=== PATIENT | male | born 1965 | race African-American/Black ===

== ENCOUNTER 2016-10-01 17:25 | Inpatient (IN) | payer SELFPAY ==
[2016-10-01] MEDS ORDERED: Acetaminophen 500 MG Tab PO ONE (17:50)
[2016-10-01] MEDS ORDERED: Sodium Chloride 0.9% 1,000 ML IV ONE ×2 (17:55→20:36)
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
[2016-10-01 19:14] LABS: CHLORIDE,CL 106 mmol/L (98-110); SODIUM,NA 138 mmol/L (136-146)
[2016-10-01] MEDS ORDERED: Ondansetron 4 MG/2 ML SDV IVPUSH PRN (22:55)
[2016-10-01] MEDS ORDERED: Sodium Chloride 0.9% 10 ML Syringe FLUSH PRN (22:55)
[2016-10-01] MEDS ORDERED: Sodium Chloride 0.9% 2.5 ML Syringe FLUSH PRN (22:55)
--- NOTE | 2016-10-01 23:06 | PCM.HP ---
H&P History of Present Illness - General Admit Problem/Dx: Admission Diagnosis/Problem Admission Diagnosis/Problem Fever - History of Present Illness Initial Comments - Free Text/Narative: 51 yo male with pmh of hypertension who presents with three day history of fevers and myalgias. He reports that he feels like he has malaria. He works for a [employer] but was visiting his in [place] from August 26 to September 26. He drove back here from [place] and then developed fevers. His symptoms he reports a similar to when he had malaria two years ago. He did not take and malaria prophylactic medications. His sister in law is a doctor in [place] who prescribed him Quinine which he started taking last night. Today he felt weaker so decided to come to the ED. He denies any cough, blood in stool, rash, or headache. Back Pain Pain Score (Numeric/FACES): 7 - Related Data Allergies/Adverse Reactions: Allergies Allergy/AdvReac Type Severity Reaction Status Date / Time No Known Allergies Allergy Verified 10/01/16 17:57 Home Medications: Home Meds quiNINE Sulfate [Qualaquin] 324 mg PO TID 10/01/16 [History] Past Medical History Cardiovascular History: Reports: Hypertension Social & Family History - Family History Family Medical History: Noncontributory - Tobacco Use Smoking Status *Q: Never Smoker - Recreational Drug Use Recreational Drug Use: Yes Drug Use in Last 12 Months: No Recreational Drug Type: Reports: Marijuana/Hashish H&P Review of Systems - Review of Systems: Review Of Systems: ROS reveals no pertinent complaints other than HPI. Exam - Exam Exam: See Below - Vital Signs Vital Signs: Last Vital Signs Temp 36.9 C 10/01/16 21:59 Pulse 95 10/01/16 21:59 Resp 18 10/01/16 21:59 BP 124/58 L 10/01/16 21:59 Pulse Ox 93 L 10/01/16 21:59 Weight: 102.058 kg - Exam General: Alert, Oriented, 4 Neck: Supple, Trachea Midline, Full Range of Motion. No: Lymphadenopathy Lungs: Clear to Auscultation, Normal Respiratory Effort Cardiovascular: Regular Rate, Regular Rhythm GI/Abdominal Exam: Normal Bowel Sounds, Soft, Non-Tender, No Organomegaly, No Distention, No Abnormal Bruit, No Mass, Pelvis Stable Back Exam: Normal Inspection, Full Range of Motion, NT - Patient Data Result Diagrams: 10/02/16 06:18 10/02/16 06:18 *Q Meaningful Use (ADM) - VTE *Q VTE Criteria *Q: - Stroke *Q Stroke Criteria *Q: - AMI *Q AMI Criteria *Q: Problem List Initiated/Reviewed/Updated: Yes Orders Last 24hrs: Active Orders 24 hr Category Date Time Status Antiembolic Devices [RC] PER UNIT ROUTINE Care 10/01/16 22:58 Ordered Intake and Output [RC] QSHIFT Care 10/01/16 22:57 Ordered Oxygen Therapy [RC] PRN Care 10/01/16 22:57 Ordered Up ad Charmaine [RC] ASDIRECTED Care 10/01/16 22:55 Ordered VTE/DVT Education [RC] PER UNIT ROUTINE Care 10/01/16 22:57 Ordered Vital Signs [RC] Q4H Care 10/01/16 22:57 Ordered Regular Diet [DIET] Diet 10/01/16 Breakfast Ordered CBC WITH AUTO DIFF [HEME] AM Lab 10/02/16 05:11 Ordered COMPREHENSIVE METABOLIC PN,CMP [CHEM] AM Lab 10/02/16 05:11 Ordered CULTURE URINE [RM] Stat Lab 10/01/16 22:55 Uncollected Ondansetron [Zofran] Med 10/01/16 22:55 Ordered 4 mg IVPUSH Q4H PRN Sodium Chloride 0.9% @ 125 MLS/HR (1000ml) Med 10/01/16 23:00 Ordered Sodium Chloride 0.9% [Normal Saline] 1,000 ml IV ASDIRECTED Sodium Chloride 0.9% [Saline Flush] Med 10/01/16 22:55 Ordered 10 ml FLUSH ASDIRECTED PRN Sodium Chloride 0.9% [Saline Flush] Med 10/01/16 22:55 Ordered 2.5 ml FLUSH ASDIRECTED PRN Peripheral IV Insertion Adult [OM.PC] Routine Oth 10/01/16 22:55 Ordered Sequential Compression Device [OM.PC] Per Unit Routine Oth 10/01/16 22:58 Ordered Resuscitation Status Routine Resus Stat 10/01/16 22:55 Ordered Assessment/Plan Comment:: 51 yo male who presents with fevers and dehydration. Will treat with IV fluids , Will send blood smear to pathology for parasite detection.
[2016-10-01] MEDS: Sodium Chloride 0.9% 1,000 ML IV SCH (23:24)
[2016-10-02] MEDS: Sodium Chloride 0.9% 1,000 ML IV SCH (06:26)
[2016-10-02 06:52] LABS: CHLORIDE,CL 109 mmol/L (98-110); SODIUM,NA 139 mmol/L (136-146)
--- NOTE | 2016-10-02 09:27 | PCM.PN ---
- Review of Systems Systems Review Comment:: fevers resolving, feeling stronger, almost like he could go home. - Patient Data Vitals - Most Recent: Last Vital Signs Temp 37.2 C 10/02/16 09:00 Pulse 98 10/02/16 09:00 Resp 20 10/02/16 09:00 BP 180/88 H 10/02/16 09:00 Pulse Ox 95 10/02/16 09:00 Weight - Most Recent: 102.058 kg I&O - Last 24 Hours: Intake & Output 10/01/16 10/02/16 10/02/16 22:59 06:59 14:59 Intake Total 1100 Output Total 1200 Balance -100 Lab Results Last 24 Hours: Laboratory Results - last 24 hr 10/02/16 10/02/16 Range/Units 06:18 06:18 WBC 5.76 (4.0-11.0) K/uL RBC 3.29 L (4.50-5.90) M/uL Hgb 9.0 L (13.0-17.0) g/dL Hct 26.5 L (38.0-50.0) % MCV 80.5 (80.0-98.0) fL MCH 27.4 (27.0-32.0) pg MCHC 34.0 (31.0-37.0) g/dL RDW Std Deviation 48.7 (28.0-62.0) fl RDW Coeff of Patricia 17 H (11.0-15.0) % Plt Count 142 L (150-400) K/uL MPV 9.60 (7.40-12.00) fL Add Manual Diff YES Neutrophils % (Manual) 52 (48.0-80.0) % Band Neutrophils % 1 % Lymphocytes % (Manual) 31 (16.0-40.0) % Monocytes % (Manual) 16 H (0.0-15.0) % Nucleated RBC % 1.0 /100WBC Absolute Seg Neuts 3.0 Band Neutrophils # 0.1 Lymphocytes # (Manual) 1.8 Monocytes # (Manual) 0.9 Nucleated RBCs # 0 K/uL Sodium 139 (136-146) mmol/L Potassium 4.0 (3.5-5.1) mmol/L Chloride 109 (98-110) mmol/L Carbon Dioxide 24 (21-31) mmol/L BUN 11 (6.0-23.0) mg/dL Creatinine 0.9 (0.6-1.5) mg/dL Est Cr Clr Drug Dosing 89.06 mL/min Estimated GFR (MDRD) > 60.0 ml/min Glucose 106 (60-110) mg/dL Calcium 8.3 L (8.8-10.8) mg/dL Total Bilirubin 3.2 H (0.1-1.5) mg/dL AST 20 (5-40) IU/L ALT 24 (8-54) IU/L Alkaline Phosphatase 47 (40-150) Total Protein 6.9 (6.0-8.0) g/dL Albumin 3.2 L (3.5-5.0) g/dL Globulin 3.7 H (2.0-3.5) g/dL Albumin/Globulin Ratio 0.9 L (1.3-2.8) Med Orders - Current: Current Medications Acetaminophen (Tylenol) 325 mg PO Q4H PRN PRN Reason: Pain/Fever Sodium Chloride (Normal Saline) 1,000 mls @ 125 mls/hr IV ASDIRECTED RADHA Last Admin: 10/02/16 06:26 Dose: 125 mls/hr Ondansetron HCl (Zofran) 4 mg IVPUSH Q4H PRN PRN Reason: Nausea Sodium Chloride (Saline Flush) 10 ml FLUSH ASDIRECTED PRN PRN Reason: Keep Vein Open Sodium Chloride (Saline Flush) 2.5 ml FLUSH ASDIRECTED PRN PRN Reason: Keep Vein Open Discontinued Medications Acetaminophen (Tylenol Extra Strength) 1,000 mg PO ONETIME ONE Stop: 10/01/16 17:51 Last Admin: 10/01/16 18:04 Dose: 1,000 mg Sodium Chloride (Normal Saline) 1,000 mls @ 999 mls/hr IV STAT ONE Stop: 10/01/16 18:55 Last Admin: 10/01/16 18:03 Dose: 999 mls/hr Sodium Chloride (Normal Saline) 1,000 mls @ 999 mls/hr IV .BOLUS ONE Stop: 10/01/16 21:36 Last Admin: 10/01/16 21:03 Dose: 999 mls/hr - Exam General: Alert, Oriented Lungs: Clear to Auscultation, Normal Respiratory Effort Cardiovascular: Regular Rate, Regular Rhythm GI/Abdominal Exam: Normal Bowel Sounds, Soft, Non-Tender, No Organomegaly, No Distention, No Abnormal Bruit, No Mass, Pelvis Stable Skin: Warm, Dry, Intact - Problem List Review Problem List Initiated/Reviewed/Updated: Yes - My Orders Last 24 Hours: My Active Orders 10/01/16 22:55 Up ad Charmaine [RC] ASDIRECTED Ondansetron [Zofran] 4 mg IVPUSH Q4H PRN Sodium Chloride 0.9% [Saline Flush] 10 ml FLUSH ASDIRECTED PRN Sodium Chloride 0.9% [Saline Flush] 2.5 ml FLUSH ASDIRECTED PRN Peripheral IV Insertion Adult [OM.PC] Routine Resuscitation Status Routine 10/01/16 22:57 Intake and Output [RC] Q12H Oxygen Therapy [RC] PRN Vital Signs [RC] Q4H 10/01/16 22:58 Antiembolic Devices [RC] PER UNIT ROUTINE Sequential Compression Device [OM.PC] Per Unit Routine 10/01/16 23:00 Sodium Chloride 0.9% [Normal Saline] 1,000 ml IV ASDIRECTED 10/01/16 23:19 Acetaminophen [Tylenol] 325 mg PO Q4H PRN - Plan Plan:: 51 yo male who presented with fevers and dehydration. Symptoms are improving, Awaiting blood smear.
[2016-10-02] MEDS ORDERED: Doxycycline 100 MG Cap PO SCH ×2 (11:01→21:00)
[2016-10-02] MEDS: Lisinopril 10 MG Tab PO SCH (11:20)
[2016-10-02] MEDS: Doxycycline 100 MG Cap PO SCH ×2 (12:28→20:31)
[2016-10-02] MEDS: QUININE SULFATE PO SCH ×2 (13:08→21:25)
[2016-10-02] MEDS: Acetaminophen 325 MG Tab PO PRN ×2 (14:29→18:22)
--- NOTE | 2016-10-02 22:13 | PCM.SN ---
- Free Text/Narrative Note: Peripheral blood smear positive for plasmodium. I called [facility] malaria hotline and they recommended Quinine and doxycyline for seven days which has been ordered.
[2016-10-03] MEDS: QUININE SULFATE PO SCH (05:31)
[2016-10-03 06:35] LABS: CHLORIDE,CL 107 mmol/L (98-110); SODIUM,NA 140 mmol/L (136-146)
[2016-10-03] MEDS: Lisinopril 10 MG Tab PO SCH (09:04)
[2016-10-03] MEDS: Doxycycline 100 MG Cap PO SCH (09:06)
[2016-10-03 09:07] VITALS: BP 180/88
[2016-10-03] MEDS: Acetaminophen 325 MG Tab PO PRN (09:40)
--- NOTE | 2016-10-03 11:03 | PCM.DCSUM1 ---
Discharge Summary - Hospital Course Free Text/Narrative:: Admission diagnosis: #1. Weakness, myalgias #2. Fever Discharge diagnosis: #1. 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 Hypertension #3. Fever, resolved 51-year-old male that was admitted with fever, weakness and diffuse myalgias. Patient was started on IV fluids and given Tylenol for his fever. Fever responded to Tylenol and he has been afebrile since admission. Patient had recent travel to [facility] and suspected that he may have malaria. Blood sample was sent for peripheral smear which came back positive for Plasmodium. CBC was contacted for recommendations in terms of treatment for malaria and they recommended 7 days of doxycycline and Quinine. Patient was started on doxycycline and resumed on his home medication of quinine which had been prescribed to him by his sister who is a physician in [place] prior to being admitted as he talked to her and told her that he thought he he had malaria. He presented to the ER secondary to worsening of symptoms including fever, weakness and diffuse myalgias. With the IV fluids, Tylenol and doxycycline and quinine the patient began to feel stronger with his myalgias resolving and his fevers resolving. Patient did not have an elevated white blood cell count during admission and his CMP was unremarkable. Blood cultures were negative. Urinalysis was negative. Chest x-ray was negative. He was noted to be hypertensive throughout admission was started on lisinopril which will be continued at discharge. At the time of discharge, the patient was ambulating without assistance, voiding appropriately, tolerating oral intake, afebrile and feeling much improved from admission. - Discharge Data Discharge Date: 10/03/16 Discharge Disposition: Home, Self-Care 01 Condition: Fair - Discharge Diagnosis/Problem(s) (1) Malaria SNOMED Code(s): 70296732 ICD Code: B54 - UNSPECIFIED MALARIA Status: Acute Current Visit: Yes - Patient Instructions Diet: Usual Diet as Tolerated Activity: As Tolerated Driving: May Drive Today Showering/Bathing: May Shower Notify Provider of: Fever, Increased Pain, Nausea and/or Vomiting - Discharge Plan Prescriptions/Med Rec: Doxycycline Calcium [IMW: Doxycycline] 100 mg PO Q12HR #10 capsule Lisinopril [Prinivil] 10 mg PO DAILY #30 tablet Home Medications: Home Meds Doxycycline Calcium [IMW: Doxycycline] 100 mg PO Q12HR #10 capsule 10/03/16 [Rx] Lisinopril [Prinivil] 10 mg PO DAILY #30 tablet 10/03/16 [Rx] quiNINE Sulfate [Qualaquin] 648 mg PO TID #24 capsule 10/03/16 [Rx] Forms: ED Department Discharge Referrals: PCP,None [Primary Care Provider] - (needs appointment with Dr. Jennifer CASTRO ) - Discharge Summary/Plan Comment DC Time >30 min.: No Discharge Summary/Plan Comment: Admission diagnosis: #1. Weakness, myalgias #2. Fever Discharge diagnosis: #1. 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 Hypertension #3. Fever, resolved 51-year-old male that was admitted with fever, weakness and diffuse myalgias. Patient was started on IV fluids and given Tylenol for his fever. Fever responded to Tylenol and he has been afebrile since admission. Patient had recent travel to [facility] and suspected that he may have malaria. Blood sample was sent for peripheral smear which came back positive for Plasmodium. CBC was contacted for recommendations in terms of treatment for malaria and they recommended 7 days of doxycycline and Quinine. Patient was started on doxycycline and resumed on his home medication of quinine which had been prescribed to him by his sister who is a physician in [place] prior to being admitted as he talked to her and told her that he thought he he had malaria. He presented to the ER secondary to worsening of symptoms including fever, weakness and diffuse myalgias. With the IV fluids, Tylenol and doxycycline and quinine the patient began to feel stronger with his myalgias resolving and his fevers resolving. Patient did not have an elevated white blood cell count during admission and his CMP was unremarkable. Blood cultures were negative. Urinalysis was negative. Chest x-ray was negative. He was noted to be hypertensive throughout admission was started on lisinopril which will be continued at discharge. At the time of discharge, the patient was ambulating without assistance, voiding appropriately, tolerating oral intake, afebrile and feeling much improved from admission. Discharge plan: #1. Patient has been prescribed 5 additional days of doxycycline 100 mg twice a day, 10 tabs for a total of 7 days of treatment. #2. I did contact the pharmacy ([facility]) where the patient had his antimalarial medication filled and they state that they have received 30 additional tablets of quinine which the patient will picker packer tomorrow. He has 4 more tabs of his previous prescription of quinine which will take him through today. #3. Patient will follow up with Dr. Rodriguez within 1 week. #4. Patient prescribed lisinopril 10 mg daily, 30 tabs, 0 refills. His blood pressure will be reassessed at his follow-up appointment with Dr. Rodriguez. - Patient Data Vitals - Most Recent: Last Vital Signs Temp 99.8 F 10/03/16 08:00 Pulse 87 10/03/16 08:00 Resp 19 10/03/16 08:00 BP 180/88 H 10/03/16 09:04 Pulse Ox 98 10/03/16 08:00 Weight - Most Recent: 225 lb I&O - Last 24 hours: Intake & Output 10/02/16 10/03/16 10/03/16 22:59 06:59 14:59 Intake Total 1040 200 Output Total 850 850 Balance 190 -650 Lab Results - Last 24 hrs: Laboratory Results - last 24 hr 10/03/16 10/03/16 Range/Units 05:55 05:55 WBC 5.56 (4.0-11.0) K/uL RBC 3.53 L (4.50-5.90) M/uL Hgb 9.4 L (13.0-17.0) g/dL Hct 28.2 L (38.0-50.0) % MCV 79.9 L (80.0-98.0) fL MCH 26.6 L (27.0-32.0) pg MCHC 33.3 (31.0-37.0) g/dL RDW Std Deviation 48.3 (28.0-62.0) fl RDW Coeff of Patricia 17 H (11.0-15.0) % Plt Count 178 (150-400) K/uL MPV 9.90 (7.40-12.00) fL Neut % (Auto) 32.4 L (48.0-80.0) % Lymph % (Auto) 50.7 H (16.0-40.0) % [place] % (Auto) 14.6 (0.0-15.0) % Eos % (Auto) 1.6 (0.0-7.0) % Baso % (Auto) 0.7 (0.0-1.5) % Neut # (Auto) 1.8 (1.4-5.7) K/uL Lymph # (Auto) 2.8 H (0.6-2.4) K/uL [place] # (Auto) 0.8 (0.0-0.8) K/uL Eos # (Auto) 0.1 (0.0-0.7) K/uL Baso # (Auto) 0.0 (0.0-0.1) K/uL Nucleated RBC % 0.8 /100WBC Nucleated RBCs # 0 K/uL Sodium 140 (136-146) mmol/L Potassium 4.1 (3.5-5.1) mmol/L Chloride 107 (98-110) mmol/L Carbon Dioxide 25 (21-31) mmol/L BUN 11 (6.0-23.0) mg/dL Creatinine 1.0 (0.6-1.5) mg/dL Est Cr Clr Drug Dosing 80.16 mL/min Estimated GFR (MDRD) > 60.0 ml/min Glucose 96 (60-110) mg/dL Calcium 9.1 (8.8-10.8) mg/dL Total Bilirubin 1.9 H (0.1-1.5) mg/dL AST 17 (5-40) IU/L ALT 24 (8-54) IU/L Alkaline Phosphatase 48 (40-150) Total Protein 7.6 (6.0-8.0) g/dL Albumin 3.5 (3.5-5.0) g/dL Globulin 4.1 H (2.0-3.5) g/dL Albumin/Globulin Ratio 0.9 L (1.3-2.8) Med Orders - Current: Current Medications Acetaminophen (Tylenol) 325 mg PO Q4H PRN PRN Reason: Pain/Fever Last Admin: 10/03/16 09:40 Dose: 325 mg Doxycycline Hyclate (Vibramycin) 100 mg PO Q12HR RADHA Last Admin: 10/03/16 09:06 Dose: 100 mg Lisinopril (Prinivil) 10 mg PO DAILY RADHA Last Admin: 10/03/16 09:04 Dose: 10 mg Ondansetron HCl (Zofran) 4 mg IVPUSH Q4H PRN PRN Reason: Nausea Quinine Sulfate [ (Qualaquin] 648 Mg) 1 each PO TID RADHA Last Admin: 10/03/16 05:31 Dose: 1 each Sodium Chloride (Saline Flush) 10 ml FLUSH ASDIRECTED PRN PRN Reason: Keep Vein Open Sodium Chloride (Saline Flush) 2.5 ml FLUSH ASDIRECTED PRN PRN Reason: Keep Vein Open Discontinued Medications Acetaminophen (Tylenol Extra Strength) 1,000 mg PO ONETIME ONE Stop: 10/01/16 17:51 Last Admin: 10/01/16 18:04 Dose: 1,000 mg Doxycycline Hyclate (Vibramycin) 100 mg PO Q12HR RADHA Doxycycline Hyclate (Vibramycin) 100 mg PO Q12HR RADHA Sodium Chloride (Normal Saline) 1,000 mls @ 999 mls/hr IV STAT ONE Stop: 10/01/16 18:55 Last Admin: 10/01/16 18:03 Dose: 999 mls/hr Sodium Chloride (Normal Saline) 1,000 mls @ 999 mls/hr IV .BOLUS ONE Stop: 10/01/16 21:36 Last Admin: 10/01/16 21:03 Dose: 999 mls/hr Sodium Chloride (Normal Saline) 1,000 mls @ 125 mls/hr IV ASDIRECTED RADHA Last Admin: 10/02/16 06:26 Dose: 125 mls/hr *Q Meaningful Use (DIS) - VTE *Q VTE Criteria *Q: - Stroke *Q Stroke Criteria *Q: - AMI *Q AMI Criteria *Q:
--- NOTE | 2016-10-03 12:30 | CR ---
EXAM DATE: 10/01/16 PATIENT'S AGE: 51 Patient: JUMA TARIQ Facility: [place], [place] Site . Site : [id number] Study: XRay Chest [id number]/12/2017 7:23:43 PM Ordering Physician: Doctor Pardo Final Report: INDICATION: Chest Pain/shortness of breath TECHNIQUE: Chest radiograph 2 views COMPARISON: None FINDINGS: Cardiovascular and mediastinum: The cardiac silhouette is normal in appearance and size. Mediastinum is within normal limits. Lungs and pleural spaces: Both lungs are unremarkable in appearance. No sign of pleural effusion. No pneumothorax is seen. Bones and soft tissues: No significant findings. IMPRESSION: 1. No acute cardiopulmonary disease seen. Dictated by: Nick Jimenez MD @ 10/01/2016 19:24:23 (Electronic Signature) Report Signed by Proxy. TAMI
== END 2016-10-03 12:00 | disposition home or self-care (01) | DRG 869 ==
LOC: MW.ED 17:25 → MW.MS 21:51
PROVIDERS: ADMIT Internal Medicine; ATTEND Internal Medicine
DX: B54 Unspecified malaria (principal); I10 Essential (primary) hypertension
CPT/HCPCS: 36415; 71020; 71020-26; 80053; 81001; 82150; 83605; 83615; 83690; 84484; 85025; 85610; 87040; 87086; 87798; 88104; 93005; 96360; 96361; 99283; 99285-25; A9270-GY; J7040

== ENCOUNTER 2019-07-28 11:25 | Emergency (ER) | payer SELFPAY ==
--- NOTE | 2019-07-28 11:42 | EDM.PDOC ---
ED HPI GENERAL MEDICAL PROBLEM - General Chief Complaint: Upper Extremity Injury/Pain Stated Complaint: RT ARM PAIN/CRAMPS Time Seen by Provider: 07/28/19 11:37 Source of Information: Reports: Patient History Limitations: Reports: No Limitations - History of Present Illness INITIAL COMMENTS - FREE TEXT/NARRATIVE: This patient is a 54-year-old male with past medical history of malaria, hypertension, and measles presenting with right arm pain and numbness. Reports a two-week history of the symptoms that started 2 days after the patient was helping a friend install roof. He was frequently using a hammer. He reports pain to the right triceps muscle and numbness radiating to the left third, fourth, and fifth fingers. Triceps pain worse with movement, better with rest. He denies any trauma or pain to the neck, denies pain to the trapezius or the right shoulder. No self treatment prior to arrival, no other complaints. Left Upper Arm Pain Score (Numeric/FACES): 4 - Related Data Allergies Allergy/AdvReac Type Severity Reaction Status Date / Time No Known Allergies Allergy Verified 07/28/19 11:41 Home Meds: Home Meds Lisinopril [Prinivil] 10 mg PO DAILY #30 tablet 10/03/16 [Rx] Past Medical History Cardiovascular History: Reports: Hypertension Hematologic History: Reports: None - Infectious Disease History Infectious Disease History: Reports: Measles - Past Surgical History Cardiovascular Surgical History: Reports: None Dermatological Surgical History: Reports: None Social & Family History - Family History Family Medical History: Noncontributory HEENT: Reports: Cataract Cardiac: Reports: Hypertension - Caffeine Use Caffeine Use: Reports: Coffee Review of Systems - Review of Systems Review Of Systems: See Below Constitutional: Denies: Chills, Fever Respiratory: Denies: Shortness of Breath Cardiovascular: Denies: Chest Pain Musculoskeletal: Denies: Neck Pain, Shoulder Pain, Arm Pain, Back Pain, Hand Pain, Leg Pain, Foot Pain Skin: Denies: Rash Neurological: Reports: Numbness, Paresthesia. Denies: Headache, Tingling, Weakness ED EXAM, GENERAL - Physical Exam Exam: See Below Free Text/Narrative:: Vital signs reviewed. Nursing notes reviewed. Constitutional: Awake, alert, non-distressed. Head: Normocephalic, atraumatic. Eyes: EOMI, conjunctiva normal, no discharge, no scleral icterus. Ears, Nose, Throat: External ears and nose normal, moist oral mucosa. Cardiovascular: 2+ right radial pulse, capillary refill less than 2 seconds in R hand. Pulmonary: normal work of breathing, no accessory muscle use. Musculoskeletal: No deformities. Mild tenderness to palpation to the right triceps muscle. 5/5 strength and sensation intact to light touch to the bilateral upper extremities. Strong and equal heater furnace strength in both hands. Able to make thumbs up, okay sign, and abduct all fingers of both hands. Sensation intact over right median, radial, and ulnar nerve distributions. No tenderness to palpation of the neck or cervical spine. Integumentary: Appropriate color for ethnicity, warm, dry, no pallor or jaundice , no rash. Neurologic: Alert, answering questions appropriately, normal speech, no facial droop, moving all extremities well. Psychiatric: Appropriate mood and affect, normal thought process. Course - Vital Signs Text/Narrative:: 54-year-old male with right arm pain and right hand numbness. Patient hemodynamically stable, afebrile, well-appearing, looks nontoxic. Differential diagnosis includes but is not limited to: Carpal tunnel syndrome, median neuropathy, thoracic outlet syndrome, Pancoast tumor, mononeuritis multiplex, occult trauma, etc. Patient is neurovascularly intact in the right upper extremity. Normal strength. No evidence of neurologic deficit. Pattern of numbness is consistent with median nerve distribution. Chest x-ray interpretation by emergency physician: No pneumothorax, no cardiomegaly, no pneumomediastinum, no apical masses, no infiltrates. I suspect triceps muscle spasm and median neuropathy. No evidence of a Pancoast tumor by chest x-rays. Patient felt better after acetaminophen, ibuprofen, and a lidocaine patch. Will plan to discharge him home with recommendations for extra strength acetaminophen, ibuprofen, heating pad, over- the-counter lidocaine patches, and primary care follow-up if symptoms do not improve. Plan: Patient is stable to discharge home with outpatient primary care follow- up. Strict emergency department return precautions were provided, patient indicated understanding. All questions were answered prior to departure. Discharged in good condition. Last Recorded V/S: Last Vital Signs Temp 35.6 C L 07/28/19 11:38 Pulse 73 07/28/19 13:43 Resp 18 07/28/19 13:43 BP 150/83 H 07/28/19 13:43 Pulse Ox 94 L 07/28/19 13:43 - Orders/Labs/Meds Meds: Medications Discontinued Medications Generic Name Dose Route Start Last Admin Trade Name Iliana PRN Reason Stop Dose Admin Acetaminophen 1,000 mg 07/28/19 12:22 07/28/19 12:40 Tylenol Extra Strength PO 07/28/19 12:23 1,000 mg ONETIME ONE Administration Fentanyl 100 mcg 07/28/19 12:22 07/28/19 12:41 Fentanyl IVPUSH 07/28/19 12:23 100 mcg ONETIME ONE Administration Lidocaine 700 mg 07/28/19 12:22 07/28/19 12:39 Lidoderm 5% TOP 07/28/19 12:23 700 mg ONETIME ONE Administration Departure - Departure Time of Disposition: 13:18 Disposition: Home, Self-Care 01 Condition: Good Clinical Impression: Triceps strain Qualifiers: Encounter type: initial encounter Laterality: right Qualified Code(s): S46.311A - Strain of muscle, fascia and tendon of triceps, right arm, initial encounter Median neuropathy Qualifiers: Laterality: right Qualified Code(s): G56.11 - Other lesions of median nerve, right upper limb - Discharge Information *PRESCRIPTION DRUG MONITORING PROGRAM REVIEWED*: Not Applicable *COPY OF PRESCRIPTION DRUG MONITORING REPORT IN PATIENT STANISLAW: Not Applicable Instructions: Muscle Strain, [id number], Muscle Strain Referrals: [facility] - Family Practice [Provider Group] - 1 Week (Follow-up if symptoms do not improve.) Forms: ED Department Discharge Additional Instructions: Thank you for choosing the [facility] emergency department in [place] for your medical needs today. It was a pleasure caring for you. You were seen in the emergency department for arm pain and hand numbness. Your x-rays are normal. I suspect that you have strained your right triceps muscle and that this is compressing or irritating your right median nerve, which is causing the numbness in your fingers. I recommend [id number] acetaminophen (Tylenol) and ibuprofen (Advil or Motrin) as directed on the package for pain. Do not take more than 4000 mg of acetaminophen or 3200 mg of ibuprofen in a 24-hour period. You can also try a heating pad and [id number] lidocaine patches. You should follow-up with a family medicine clinic the next 1 to 2 weeks if your symptoms do not improve. Please return the emergency department immediately if your symptoms worsen or if you feel worse. The following information is given to patients seen in the emergency department who are being discharged. This information is to outline your options for follow -up care. We provide all patients seen in our emergency department with a follow -up referral. The need for follow-up, as well as the timing and circumstances, are variable depending upon the specifics of your emergency department visit. If you don't have a primary care physician on staff, we will provide you with a referral. We always advise you to contact your personal physician following an emergency department visit to inform them of the circumstance of the visit and for follow-up with them and/or the need for any referrals to a consulting specialist. The emergency department will also refer you to a specialist when appropriate. This referral assures that you have the opportunity for follow-up care with a specialist. All of these measure are taken in an effort to provide you with optimal care, which includes your follow-up. Under all circumstances we always encourage you to contact your private physician who remains a resource for coordinating your care. When calling for follow-up care, please make the office aware that this follow-up is from your recent emergency room visit. If for any reason you are refused follow-up, please contact the [facility] Emergency Department at and asked to speak to the emergency department charge nurse. If you do not have a primary care physician that is caring for you, you can contact these clinics below to set up an appointment to establish care: [facility] - Primary Care [address] [place] [id number] [facility] [address] [place] [address] Sepsis Event Note - Evaluation Sepsis Screening Result: No Definite Risk - Focused Exam Vital Signs: Vital Signs Temp Pulse Resp BP Pulse Ox 07/28/19 13:43 73 18 150/83 H 94 L 07/28/19 12:35 74 17 161/84 H 97 07/28/19 11:38 35.6 C L 86 20 182/89 H 98 Date Exam was Performed: 07/28/19 Time Exam was Performed: 18:39
[2019-07-28] MEDS ORDERED: Lidocaine 5% 700 MG Patch TOP ONE (12:22)
[2019-07-28] MEDS ORDERED: Acetaminophen 500 MG Tab PO ONE (12:22)
[2019-07-28] MEDS ORDERED: fentaNYL 50 MCG/ML SDV IVPUSH ONE (12:22)
--- NOTE | 2019-07-28 13:25 | CR ---
Chest: 2 views of the chest were obtained. Comparison: Prior chest x-ray of 10/01/16. Heart size and mediastinum are normal. Lungs are clear with no acute parenchymal change. Bony structures shows minimal scoliosis within the spine. Lung apices are clear. Impression: 1. Nothing acute is seen on 2 view chest x-ray. Diagnostic code #1 This report was dictated in MDT
[2019-07-28 13:44] VITALS: BP 150/83; PULSE 73
== END 2019-07-28 13:44 | disposition home or self-care (01) ==
LOC: MW.ED 11:25
DX: S46.311A Strain of muscle, fascia and tendon of triceps, right arm, initial encounter (principal); G56.11 Other lesions of median nerve, right upper limb; I10 Essential (primary) hypertension; Z79.899 Other long term (current) drug therapy; X58.XXXA Exposure to other specified factors, initial encounter
CPT/HCPCS: 71046; 96374; 99284; A9270; J3010; 99283